=== PATIENT | male | born 1950 | race Caucasian/White ===

== ENCOUNTER 2021-05-29 09:20 | Emergency (ER) | payer MEDICARE, SELFPAY ==
[2021-05-29 09:20] VITALS: BP 121/76; PULSE 78; RESP 19; TEMP 36.9; O2SAT 97; BMI 40.8
--- NOTE | 2021-05-29 09:57 | HMH.EDUTC ---
[facility] – [place] Disposition Clinical Impression: Upper respiratory infection, viral, COVID-19 virus test result unknown Disposition: Home, Self-Care Condition on Discharge: Good Instructions: DI for Viral Upper Respiratory Infection -- Adult, DI for COVID-19 (Suspected or Confirmed ), How to Care for Someone with COVID-19 Additional Instructions: covid swab was sent to lab, call later today for results. self isolate until test results are known to be negative No sign of a bacterial infection. Likely viral. Viruses can take 7-14 days to run their course. Nasal saline and bulb syringe or nose Risa to remove nasal drainage to help with nasal congestion. Hard to eat, drink, sleep with nasal congestion so important to keep this cleaned out. Monitor temp. Tylenol or Motrin as needed for pain or fever Encourage fluids, water, Gatorade, Powerade, Pedialyte if /toddler/child Warm salt water gargles Warm fluids Sore throat lozenges Sleep elevated Humidifier/vaporizer Follow-up immediately for new or worsening symptoms or no noticeable improvement over the next 48-72 hours. Referrals: Lenny Romero [Primary Care Provider] - Time of Disposition: 09:59 Medical Decision Making - Jhonathan Inquiry Pt receiving controlled substance: No Orders (Tests/Meds): ORDERS Category Date Time Status Covid-19 Nasal PCR ([facility]) Routine Lab 05/29/21 09:23 Ordered [facility] [place] HPI - General Chief complaint: Urgent Treatment [facility] Stated complaint: sore throat, congestion, covid test Time Seen by Provider: 05/29/21 09:57 Mode of Arrival: Ambulatory Source of Information: Patient Limitations: No Limitations - History of Present Illness Provider Complaint: 70 yr old male presents for sore throat, cough and nasal congestion for 2 days and would like a covid test. [facility] History - Hepatitis A Screen Attestation statement:: This patient has been screened for Hepatitis A risk factors. I have reviewed the patient's past medical history: Yes ROS Obtained: Yes All systems reviewed & no additional complaints - Constitutional Constitutional: Reports system reviewed and no additional complaints, except as docu, Denies fatigue, Denies fever(s) - Eyes Eyes: Reports system reviewed and no additional complaints, except as docu, Denies blurry vision - ENT Ears, Nose, Mouth, and Throat: Reports system reviewed and no additional complaints, except as docu, Reports nasal congestion, Reports nasal discharge, Reports sore throat - Cardiovascular Cardiovascular: Reports system reviewed and no additional complaints, except as docu, Denies chest pain - Respiratory Respiratory: Reports system reviewed and no additional complaints, except as docu, Reports cough - Gastrointestinal Gastrointestingal: Reports: system reviewed and no additional complaints, except as docu. Denies: abdominal pain - Genitourinary Male Genitourinary: Reports system reviewed and no additional complaints, except as docu - Musculoskeletal Musculoskeletal: Reports system reviewed and no additional complaints, except as docu, Denies joint pain - Integumentary/Breasts Skin/Breast: Reports system reviewed and no additional complaints, except as docu, Denies rash - Neurologic Neurologic: Reports system reviewed and no additional complaints, except as docu, Denies dizziness - Endocrine Endocrine: Reports system reviewed and no additional complaints, except as docu, Denies fatigue - Hematologic/Lymphatic Henatologic/Lymphatic: Reports system reviewed and no additional complaints, except as docu, Denies easy bruising - Allergic/Immunologic Allergic/Immunologic: Reports system reviewed and no additional complaints, except as docu, Denies itchy eyes Physical Exam - General General appearance: alert, in no apparent distress - Head Head exam: atraumatic, normocephalic, normal inspection - Eye Eye exam: Present: normal appearance, PERRL - ENT ENT exam: Present: normal exam, norm
[2021-05-29 10:00] VITALS: BP 121/76; PULSE 78; RESP 19; TEMP 36.9; O2SAT 97
== END 2021-05-29 10:03 | disposition home or self-care (01) ==
PROVIDERS: Emergency Provider Nurse Practitioner; PCP Family Medicine
DX: J06.9 Acute upper respiratory infection, unspecified (principal); Z20.822 Contact with and (suspected) exposure to COVID-19
CPT/HCPCS: G0463; 99202; U0003

== ENCOUNTER → 2021-06-13 11:15 | Outpatient (CLI) | payer MEDICARE, SELFPAY | PROVIDERS: PCP Family Medicine; Visit Provider Nurse Practitioner | DX: Z20.822 Contact with and (suspected) exposure to COVID-19 (principal); U07.1 COVID-19 | CPT/HCPCS: C9803; U0003; U0005 ==

== ENCOUNTER → 2021-06-27 12:25 | Outpatient (CLI) | payer MEDICARE, SELFPAY | PROVIDERS: PCP Family Medicine; Visit Provider Nurse Practitioner | DX: Z20.822 Contact with and (suspected) exposure to COVID-19 (principal) | CPT/HCPCS: C9803; U0003; U0005 ==

== ENCOUNTER 2021-06-30 08:59 | Emergency (ER) | payer MEDICARE, SELFPAY ==
[2021-06-30 09:00] VITALS: BP 152/84; PULSE 77; RESP 22; TEMP 36.8; O2SAT 96; BMI 37.5
--- NOTE | 2021-06-30 09:28 | HMH.EDUTC ---
[facility] Disposition Clinical Impression: Bronchitis Sinusitis Qualifiers: Sinusitis location: unspecified location Chronicity: unspecified Qualified Code(s): J32.9 - Chronic sinusitis, unspecified Disposition: Home, Self-Care Condition on Discharge: Good Instructions: Sinusitis, Acute Bronchitis, Cough, DI for Sinusitis Additional Instructions: ? Start antibiotic today. Be sure to complete entire prescription even if feeling better ? Monitor temp. Tylenol every 4 hours as needed and / or ibuprofen every 6 hours as needed ( As long as your primary care physician has told you that it ok to take both. For fever/aches/pains ER if no less than 101 despite Tylenol or Motrin ? Humidifier/vaporizer or hot steamy shower *Tessalon Perles will not cause drowsiness but use at bedtime to help stop cough so that you may get some rest. *Start steroid today. Helps with inflammation therefore, cough and wheezing. Follow directions on the package. Reviewed side effects. Patient reports taking them before. Follow up IMMEDIATELY for new or worsening of symptoms OR no noticeable improvement over the next 48-72 hours. 911 immediately for any life threatening symptoms such as chest pain or difficulty breathing Prescriptions: predniSONE [Deltasone 10mg tablet] 10 mg PO BID 5 Days #10 tab Transmission Status: Received by [id number] Benzonatate [Tessalon Perle 100mg Cap*] 100 mg PO TID PRN #30 cap PRN Reason: Cough Transmission Status: Received by [id number] Azithromycin [Z-Vinod 250mg Tab] 250 mg PO DIRECTED #6 tab Transmission Status: Received by [id number] Referrals: Lenny Romero [Primary Care Provider] - As needed Time of Disposition: 09:49 Medical Decision Making - Jhonathan Inquiry Pt receiving controlled substance: No Jhonathan was queried for this patient: No Vital Signs: 06/30/21 09:00 06/30/21 10:00 Temperature 98.3 F 98.3 F Temperature Source Oral Pulse Rate 77 Pulse Rate [Right Radial] 77 Respiratory Rate 22 22 Blood Pressure 152/84 H Blood Pressure [Right Arm] 152/84 H Blood Pressure Mean [Right Arm] 106 Blood Pressure Source [Right Arm] Automatic Cuff Blood Pressure Position [Right Arm] Sitting 02 Sat by Pulse Oximetry 96 Oxygen Delivery Method Room Air Medical Decision Narrative: Patient states that he has taken azithromycin and Prednisone in the past without complications or reactions [facility] HPI - General Stated complaint: connie, cough, congestion, weakness Time Seen by Provider: 06/30/21 09:28 Mode of Arrival: Ambulatory Source of Information: Patient Limitations: No Limitations Description of Symptoms (Recalled from Triage Doc. by RN): Pt states that he was dx with COVID two weeks ago. States that he began to feel better, but this morning began having symptoms again. C/O SOA, general weakness, congestion and cough HEENT Symptoms (Recalled from RN notes): No Resp Symptoms (Recalled from RN notes): No Skin Symptoms (Recalled from RN notes): No MS Symptoms (Recalled from RN notes): No Functional Status (Recalled from RN notes): n/a - History of Present Illness Provider Complaint: Patient states that he had COVID a few weeks ago and he tested Sunday and was now negative States that for the last couple of days he has been feeling bad again States that he has been having sinus congestion, drainage, cough, and feels like it is trying to move into his chest States that this morning he was still feeling bad so he came in Denies productive cough - Related Data Previous Rx's Medication Instructions Recorded Azithromycin [Z-Vinod 250mg Tab] 250 mg PO DIRECTED #6 tab 06/30/21 Benzonatate [Tessalon Perle 100mg 100 mg PO TID PRN #30 cap 06/30/21 Cap*] predniSONE [Deltasone 10mg tablet] 10 mg PO BID 5 Days #10 tab 06/30/21 Allergies Allergy/AdvReac Type Severity Reaction Status Date / Time No Known Allergies Allergy Verified 05/29/21 10:02 - Worker's Comp Is this a Wo
[2021-06-30 10:00] VITALS: BP 152/84; PULSE 77; RESP 22; TEMP 36.8; O2SAT 96
== END 2021-06-30 10:01 | disposition home or self-care (01) ==
PROVIDERS: Emergency Provider Nurse Practitioner; PCP Family Medicine
DX: J40 Bronchitis, not specified as acute or chronic (principal); J32.9 Chronic sinusitis, unspecified
CPT/HCPCS: 99202; G0463